=== PATIENT | male | born 1945 | race Caucasian/White ===

== ENCOUNTER 2022-09-26 10:45 | Day surgery (SDC) | payer MEDICARE ==
[~2022-09-26] VITALS: Ht 190.5 cm; Wt 119.3 kg
[2022-09-26] MEDS ORDERED: normal saline 1000ml 1,000 ML IV SCH (11:15)
[2022-09-26 11:30] VITALS: RESP 16; O2SAT 96
[2022-09-26] MEDS ORDERED: NIFE-72 PO (11:40)
[2022-09-26] MEDS ORDERED: CEPH500C2 (11:40)
[2022-09-26] MEDS ORDERED: ATOR-2 PO (11:40)
[2022-09-26] MEDS ORDERED: ERGO500093 PO (11:40)
[2022-09-26] MEDS ORDERED: PANT40TA54 PO (11:40)
[2022-09-26] MEDS ORDERED: [UNRECOGNIZED DRUG - CODE] EACHEYE (11:40)
[2022-09-26] MEDS ORDERED: METO-384 PO (11:40)
[2022-09-26] MEDS ORDERED: CLOP75TA34 PO (11:40)
[2022-09-26] MEDS ORDERED: ASPI-1265 PO (11:41)
[2022-09-26 11:45] VITALS: BP 146/73; PULSE 56; RESP 16; TEMP 98; O2SAT 96
[2022-09-26 12:40] LABS: PROTHROMBIN TIME 10.7 SECONDS (9.0-12.0)
[2022-09-26] MEDS ORDERED: heparin 1,000unit/ml 10ml vial 10 ML ONE (12:48)
[2022-09-26 13:35] VITALS: BP 164/140; PULSE 66; RESP 14; O2SAT 99
[2022-09-26 13:50] VITALS: BP 174/113; PULSE 56; RESP 16; O2SAT 97
== END 2022-09-26 14:15 | disposition home or self-care (01) ==
LOC: SSTAY O 10:45
PROVIDERS: ATTEND Radiology Vascular & Interventional Radiology
DX: T82.43XA Leakage of vascular dialysis catheter, initial encounter (principal); Z88.8 Allergy status to other drugs, medicaments and biological substances; Z79.82 Long term (current) use of aspirin; Z79.01 Long term (current) use of anticoagulants; Z79.899 Other long term (current) drug therapy; Y83.8 Other surgical procedures as the cause of abnormal reaction of the patient, or of later complication, without mention of misadventure at the time of the procedure; Y92.89 Other specified places as the place of occurrence of the external cause
CPT/HCPCS: 36415; 36581; 77001; 85610; C1750; C1769; J1644; J7030; A4620; A9270